=== PATIENT | male | born 1970 | race Caucasian/White ===

== ENCOUNTER 2018-06-08 12:53 | Emergency (ER) | payer OTHER ==
[2018-06-08 13:09] VITALS: TEMP 97.6
[2018-06-08 13:31] LABS: BASOPHILS % (AUTO) 1 % (0-3); EOSINOPHILS % (AUTO) 3 % (0-9); HEMATOCRIT 42 % (39-53); HEMOGLOBIN 13.6 gm/dl (13.5-17.7); LYMPHOCYTES % (AUTO) 32.7 % (10-50); MEAN CORPUSCULAR HGB CONC 32.3 gm/dl (32.0-36.0); MEAN CORPUSCULAR VOLUME 87 fL (80-100); MONOCYTES % (AUTO) 8.1 % (0-12); NEUTROPHILS % (AUTO) 55.5 % (37-80)
[2018-06-08 13:39] LABS: APPEARANCE,URINE Clear; BILIRUBIN,URINE NEGATIVE (NEGATIVE); COLOR,URINE Yellow; GLUCOSE, URINE (UA) NEGATIVE (NEGATIVE); KETONES,URINE NEGATIVE (NEGATIVE); LEUKOCYTE ESTERASE ,URINE NEGATIVE (NEGATIVE); NITRATE,URINE NEGATIVE (NEGATIVE); OCCULT BLOOD,URINE NEGATIVE (NEG-TRACE); UROBILINOGEN,URINE 0.2 (0.2-1.0 EU)
[2018-06-08 13:44] LABS: ALBUMIN 3.3 gm/dl (3.4-5.0); ALKALINE PHOSPHATASE 86 IU/L (46-116); ALT 26 IU/L (14-63); AST 18 IU/L (15-37); BILIRUBIN,TOTAL 0.2 mg/dl (0.2-1.0); BLOOD UREA NITROGEN 10 mg/dl (7-18); CALCIUM 8.8 mg/dl (8.5-10.1); CARBON DIOXIDE 30.3 mEq/L (21-32); CHLORIDE 102 mMol/L (98-107); GLUCOSE 97 mg/dl (74-106); SODIUM 140 mMol/L (136-145); TOTAL PROTEIN 7.1 gm/dl (6.4-8.2); TROP I < 0.017 ng/ml (0.000-0.056)
[2018-06-08 13:57] LABS: AMPHETAMINES NEGATIVE (NEGATIVE); BACTERIA TRACE (< 1+); BARBITUATES NEGATIVE (NEGATIVE); BENZODIAZEPINES NEGATIVE (NEGATIVE); CANNABINOL(THC) NEGATIVE (NEGATIVE); COCAINE(COC) NEGATIVE (NEGATIVE); CRYSTALS NEGATIVE (0-3 AVE/HPF); EPITHELIAL CELLS NEGATIVE (SQUAMOUS); METHADONE NEGATIVE (NEGATIVE); METHAMPHETAMINES NEGATIVE (NEGATIVE); OPIATES(OPI) NEGATIVE (NEGATIVE); OXYCODONE(OXY) NEGATIVE (NEGATIVE); PROPOXYPHENE(PPX) NEGATIVE (NEGATIVE); RBC,URINE 0-1 (0-3AV/HPF); TRICYCLIC ANTIDEPRESSANTS NEGATIVE (NEGATIVE); WBC,URINE 0-1 (0-5AV/HPF)
[2018-06-08] MEDS ORDERED: KETOROLAC TROMETHAMINE 30 MG/ML SOL IM ONE (14:07)
[2018-06-08] MEDS ORDERED: CYCLOBENZAPRINE 10 MG TAB PO ONE (14:07)
[2018-06-08] MEDS ORDERED: KETOROLAC TROMETHAMINE 30 MG/ML SOL ONE (14:08)
[2018-06-08] MEDS ORDERED: CYCLOBENZAPRINE 10 MG TAB ONE (14:08)
[2018-06-08] MEDS ORDERED: APAP/HYDROCODONE 1 EACH TABLET PO ONE (15:19)
[2018-06-08] MEDS ORDERED: APAP/HYDROCODONE 1 EACH TABLET ONE (15:27)
[2018-06-08] MEDS ORDERED: ASPIRIN 81 MG CHEWABLE CTB PO ONE (15:46)
[2018-06-08] MEDS ORDERED: ASPIRIN 81 MG CHEWABLE CTB ONE (15:52)
[2018-06-08] MEDS ORDERED: SODIUM CHLORIDE 0.9% 1000ML 500 ML IV ONE (17:43)
[2018-06-08 18:56] VITALS: BP 137/105; PULSE 50; RESP 20; O2SAT 100
== END 2018-06-08 18:17 | DRG 552 ==
LOC: ED 12:53
DX: M54.5 Low back pain (principal); T33.532A Superficial frostbite of left finger(s), initial encounter; R07.9 Chest pain, unspecified; F15.90 Other stimulant use, unspecified, uncomplicated
CPT/HCPCS: 71045; 72132; 80053; 80305; 81001; 84484; 85025; 85378; 93005; 96365; 96372; 99284; 99285; J1885; Q9967; A9270-GY

== ENCOUNTER 2018-06-21 08:18 | Emergency (ER) | payer OTHER ==
[2018-06-21 08:38] VITALS: TEMP 97.4
[2018-06-21 08:41] LABS: BASOPHILS % (AUTO) 1 % (0-3); EOSINOPHILS % (AUTO) 4 % (0-9); HEMATOCRIT 44 % (39-53); HEMOGLOBIN 14.6 gm/dl (13.5-17.7); LYMPHOCYTES % (AUTO) 34.1 % (10-50); MEAN CORPUSCULAR HEMOGLOBIN 28.5 pg (27.0-32.0); MEAN CORPUSCULAR HGB CONC 33.3 gm/dl (32.0-36.0); MEAN CORPUSCULAR VOLUME 86 fL (80-100); MONOCYTES % (AUTO) 9.3 % (0-12)
[2018-06-21 08:56] LABS: ALBUMIN 3.6 gm/dl (3.4-5.0); ALKALINE PHOSPHATASE 86 IU/L (46-116); ALT 28 IU/L (14-63); AST 17 IU/L (15-37); BILIRUBIN,TOTAL 0.3 mg/dl (0.2-1.0); CALCIUM 8.6 mg/dl (8.5-10.1); CARBON DIOXIDE 29.1 mEq/L (21-32); CHLORIDE 101 mMol/L (98-107); CREATININE 0.75 mg/dl (0.80-1.30); GLUCOSE 95 mg/dl (74-106); POTASSIUM 4.1 mMol/L (3.5-5.1); SODIUM 139 mMol/L (136-145); TOTAL PROTEIN 7.4 gm/dl (6.4-8.2)
[2018-06-21 09:02] LABS: APPEARANCE,URINE Clear; BILIRUBIN,URINE NEGATIVE (NEGATIVE); COLOR,URINE Yellow; GLUCOSE, URINE (UA) NEGATIVE (NEGATIVE); KETONES,URINE NEGATIVE (NEGATIVE); LEUKOCYTE ESTERASE ,URINE NEGATIVE (NEGATIVE); NITRATE,URINE NEGATIVE (NEGATIVE); OCCULT BLOOD,URINE NEGATIVE (NEG-TRACE); UROBILINOGEN,URINE 0.2 (0.2-1.0 EU)
[2018-06-21 09:09] LABS: BACTERIA NEGATIVE (< 1+); CRYSTALS NEGATIVE (0-3 AVE/HPF); EPITHELIAL CELLS NEGATIVE (SQUAMOUS); RBC,URINE NEG (0-3AV/HPF); WBC,URINE NEG (0-5AV/HPF)
[2018-06-21 09:17] LABS: BLOOD UREA NITROGEN 9 mg/dl (7-18)
[2018-06-21 09:22] LABS: ALCOHOL < 0.003 gm/dl (0.000-0.08)
[2018-06-21 09:28] LABS: AMPHETAMINES NEGATIVE (NEGATIVE); BARBITUATES NEGATIVE (NEGATIVE); BENZODIAZEPINES NEGATIVE (NEGATIVE); CANNABINOL(THC) NEGATIVE (NEGATIVE); COCAINE(COC) NEGATIVE (NEGATIVE); METHADONE NEGATIVE (NEGATIVE); METHAMPHETAMINES NEGATIVE (NEGATIVE); OPIATES(OPI) NEGATIVE (NEGATIVE); OXYCODONE(OXY) NEGATIVE (NEGATIVE); PROPOXYPHENE(PPX) NEGATIVE (NEGATIVE); TRICYCLIC ANTIDEPRESSANTS NEGATIVE (NEGATIVE)
[2018-06-21] MEDS ORDERED: SODIUM CHLORIDE 0.9% 1000ML 1,000 ML IV ONE (09:52)
[2018-06-21 12:21] VITALS: BP 125/79; PULSE 65; RESP 16; O2SAT 96
== END 2018-06-21 13:15 | DRG 948 ==
LOC: ED 08:18
DX: R41.0 Disorientation, unspecified (principal); E86.0 Dehydration; G47.00 Insomnia, unspecified
CPT/HCPCS: 70450; 80053; 80305; 80307; 81001; 85025; 96365; 99283; 99284